=== PATIENT | female | born 1980 | race Caucasian/White ===

== ENCOUNTER 2017-12-18 18:27 | Emergency (ER) | payer OTHER ==
[~2017-12-18] VITALS: Ht 152.4 cm; Wt 68.0 kg
[~2017-12-18 18:27] MED LIST: MACROBID 100 M100 M2 PO; NOHOMEMEDICATIONS
[2017-12-18] MEDS ORDERED: IBUPROFEN 600600 M1 PO (19:19)
[2017-12-18] MEDS ORDERED: MEDROLDOSEPACK PO (19:19)
[2017-12-18] MEDS ORDERED: CYCLOBENZAPRINE10 MG PO (19:19)
[2017-12-18 19:28] VITALS: BP 120/81
== END 2017-12-18 19:30 | disposition home or self-care (01) ==
LOC: M.ERS 18:27
DX: M54.41 Lumbago with sciatica, right side (principal); Z90.710 Acquired absence of both cervix and uterus; X58.XXXA Exposure to other specified factors, initial encounter; Y93.89 Activity, other specified; Y92.89 Other specified places as the place of occurrence of the external cause; Y99.0 Civilian activity done for income or pay